=== PATIENT | male | born 1980 | race American Indian/Alaskan Native ===

== ENCOUNTER 2018-05-02 15:08 | Outpatient (CLI) | payer OTHER ==
--- NOTE | 2018-05-02 19:04 | Ultrasound Report ---
FINAL REPORT PROCEDURE: Renal ultrasound. TECHNIQUE: Real-time sonography in multiple planes of the kidneys, ureters and urinary bladder was performed with image documentation. CPT 13541 HISTORY: Acute kidney failure. COMPARISON: No prior studies are available for comparison. FINDINGS: The right kidney measures 9.9 centimeters x 4.9 centimeters x 4.9 centimeters. The left kidney measures 10.7 centimeters x 4.6 centimeters x 5.5 centimeters. Both kidneys have normal echogenicity. There is no hydronephrosis. There are 2 small cysts in the right kidney. The bladder is unremarkable. IMPRESSION: No significant abnormality.
== END 2018-05-02 15:09 | disposition home or self-care (01) ==
LOC: US 15:08
PROVIDERS: ATTEND Internal Medicine Nephrology
DX: N28.1 Cyst of kidney, acquired (principal); Z91.010 Allergy to peanuts
CPT/HCPCS: 76770